=== PATIENT | female | born 1960 | race Two or more races ===

== ENCOUNTER 2021-09-24 01:02 | Emergency (ER) | payer OTHER ==
[~2021-09-24] VITALS: Ht 175.3 cm; Wt 70.3 kg
[2021-09-24] MEDS ORDERED: DUPIXENT P300 MG/2 M SQ (01:09)
[2021-09-24] MEDS ORDERED: KETO10TA2 PO (03:42)
== END 2021-09-24 04:27 | disposition home or self-care (01) ==
LOC: ER 01:02
DX: S22.31XA Fracture of one rib, right side, initial encounter for closed fracture (principal); W18.30XA Fall on same level, unspecified, initial encounter; Y93.01 Activity, walking, marching and hiking; Y92.019 Unspecified place in single-family (private) house as the place of occurrence of the external cause